=== PATIENT | female | born 1995 | race Caucasian/White ===

== ENCOUNTER 2017-05-03 16:22 | Outpatient (CLI) | payer OTHER | END 2017-05-03 16:23 | disposition home or self-care (01) | LOC: BICRAD 16:22 | PROVIDERS: ATTEND Chiropractor | DX: M54.5 Low back pain (principal); M47.896 Other spondylosis, lumbar region; M41.86 Other forms of scoliosis, lumbar region | CPT/HCPCS: 72100 ==